=== PATIENT | male | born 1970 | race Caucasian/White ===

== ENCOUNTER 2018-02-10 09:56 | Emergency (ER) | payer OTHER ==
[~2018-02-10] VITALS: Ht 190.5 cm; Wt 75.9 kg
[~2018-02-10 09:56] MED LIST: CLARITIN10 M3 PO; DELTASONE20 M1 PO; DELZICOL400 MG PO; FLONASE16 G1 BOTH NARES; HYOSCYAMINE0.125 MG PO; IMURAN50 MG PO; LOMOTIL TABLET1 EACH PO; METAMUCIL POWD798 GM PO; PHILLIPS' COLO1 EACH PO; PREDNISONE20 MG PO; VITAMIN D-32000 UNI2 PO
[2018-02-10 10:28] LABS: BASOPHIL (%) 0.5 % (0-1); EOSINOPHIL (%) 1.2 % (0-5); EOSINOPHIL COUNT 0.1 K/uL (0-0.3); HEMATOCRIT 39.1 % (38.0-50.0); HEMOGLOBIN 13.4 G/DL (12.5-16.6); IMMATURE GRANULOCYTE (%) 0.2 % (0.0-0.7); LYMPHOCYTE (%) 18.3 % (15-42); LYMPHOCYTE COUNT 1.1 K/uL (1.0-2.8); MCH 31.3 PG (29.0-34.0); MCHC 34.3 G/DL (30.0-36.0); MCV 91.4 FL (86-99); MONOCYTE (%) 9.7 % (3-12); MONOCYTE COUNT 0.6 K/uL (0-0.8); NEUTROPHIL (%) 70.1 % (45-76); NEUTROPHIL COUNT 4.2 K/uL (1.8-6.4); PLATELET COUNT 145 K/uL (156-360); RBC DIS.WIDTH-CV 12.3 % (11.8-14.6); RBC DIS.WIDTH-SD 40.8 % (39-53); RED BLOOD COUNT 4.28 M/uL (4.00-5.50)
[2018-02-10 10:34] LABS: INTER. NORMALIZED RATIO 1.1
[2018-02-10 10:36] LABS: D-DIMER ELISA < 150.00 ng/mLDDU (<230); PTT 55.1 SEC (25-37)
[2018-02-10 10:38] LABS: CHLORIDE 105 mEq/L (99-109); POTASSIUM 4.2 mEq/L (3.7-5.4); SODIUM 139 mEq/L (136-147)
[2018-02-10 10:39] LABS: GLUCOSE 88 mg/dL (70-99)
[2018-02-10 10:43] LABS: CREATININE 1.3 mg/dL (0.6-1.3); GFR ESTIMATE (CALCULATED) > 59 mL/min/ (58.99-99999)
[2018-02-10 10:44] LABS: UREA NITROGEN (BUN) 14 mg/dL (9-23)
[2018-02-10 10:48] LABS: TROP-I INTERPRETATION NEGATIVE; TROPONIN-I < 0.01 ng/mL (0.0-0.30)
[2018-02-10 13:09] LABS: TROP-I INTERPRETATION NEGATIVE; TROPONIN-I < 0.01 ng/mL (0.0-0.30)
[2018-02-10] MEDS ORDERED: MOTRIN800 MG PO (13:19)
[2018-02-10 13:34] VITALS: BP 115/82
== END 2018-02-10 13:41 | disposition home or self-care (01) ==
LOC: EME 09:56
PROVIDERS: Emergency Medicine
DX: R07.89 Other chest pain (principal); R09.1 Pleurisy; Z87.19 Personal history of other diseases of the digestive system
CPT/HCPCS: 71045; 80048; 84484; 85025; 85379; 85610; 85730; 93005; 99281; 99285